=== PATIENT | female | born 1960 | race Caucasian/White ===

== ENCOUNTER 2017-07-21 23:27 | Emergency (ER) | payer OTHER ==
[~2017-07-21] VITALS: Ht 167.6 cm; Wt 101.6 kg
[2017-07-21 23:34] VITALS: Ht 167.6 cm; Wt 101.6 kg
[2017-07-22 01:49] VITALS: BP 135/84
== END 2017-07-22 01:49 | disposition home or self-care (01) ==
LOC: ED 23:27
DX: S01.81XA Laceration without foreign body of other part of head, initial encounter (principal); Z91.041 Radiographic dye allergy status; W01.198A Fall on same level from slipping, tripping and stumbling with subsequent striking against other object, initial encounter; Y93.89 Activity, other specified; Y92.89 Other specified places as the place of occurrence of the external cause; Y99.8 Other external cause status
CPT/HCPCS: J2001